=== PATIENT | male | born 1990 ===

== ENCOUNTER 2018-07-12 20:25 | Emergency (ER) | payer OTHER ==
[2018-07-12] MEDS ORDERED: DiphenhydrAMINE 50 mg/ml Inj IV STA (20:33)
[2018-07-12] MEDS ORDERED: Sodium Chloride 0.9% 1,000 ML IV STA (20:33)
[2018-07-12 21:04] LABS: BASO # 0.1 K/uL (0.0-0.2); EOS # 0.4 K/uL (0.0-0.7); EOS % 5.7 % (0.0-4.0); HEMOGLOBIN 15.7 g/dL (12.0-18.0); LYMPH # 2.9 K/uL (1.0-4.3); LYMPH % 39.7 % (20.0-40.0); MEAN CELL VOLUME 87.4 fl (80.0-94.0); MEAN CORPUSCULAR HEMOGLOBIN 30.5 pg (27.0-31.0); MEAN CORPUSCULAR HGB CONC 34.9 g/dL (33.0-37.0); MEAN PLATELET VOLUME 8.2 fl (7.2-11.7); MONO # 0.5 K/uL (0.0-0.8); MONO % 6.5 % (0.0-10.0); NEUT # 3.4 K/uL (1.8-7.0); NEUT % 47.1 % (50.0-75.0); NRBC % 0.1 % (0.0-0.0); RBC 5.15 Mil/uL (4.40-5.90); WHITE BLOOD COUNT 7.3 K/uL (4.8-10.8)
[2018-07-12] MEDS ORDERED: DiphenhydrAMINE 50 mg/ml Inj ONE (21:09)
[2018-07-12 21:19] LABS: ALB/GLOB RATIO 1.2 (1.0-2.1); ALBUMIN 4.5 g/dL (3.5-5.0); ALT/SGPT 31 U/L (21-72); AST/SGOT 53 U/L (17-59); BLOOD UREA NITROGEN 14 mg/dl (9-20); CALCIUM 9.3 mg/dL (8.4-10.2); GFR NON-AFRICAN AMERICAN 55
--- NOTE | 2018-07-12 21:39 | ED PDOC ---
HPI: Allergic Reaction Time Seen by Provider: 07/12/18 20:28 Chief Complaint (Nursing): Allergic Reaction Chief Complaint (Provider): allergic reaction History Per: Patient History/Exam Limitations: no limitations Onset/Duration Of Symptoms: Hrs (today) Current Symptoms Are (Timing): Still Present Additional Complaint(s): González Brady is a 28 year old male, with no significant past medical history, who presents to the emergency department for evaluation of an allergic reaction today. Patient states he suddenly felt swelling to his face and noticed to have red blotches on his face. Patient reports he ate pork and states he's had similar mild reactions to pork in the past. He admits to drinking significant amount of alcohol throughout the day and also reports x1 episode of nonbloody, nonbilious vomiting. Significant other at bedside also provided hist ory. He denies any other medical complaints. PMD: None provided. Past Medical History Reviewed: Historical Data, Nursing Documentation, Vital Signs Vital Signs: Last Vital Signs Temp 97.9 F 07/12/18 20:28 Pulse 101 H 07/12/18 21:05 Resp 20 07/12/18 21:05 BP 109/78 07/12/18 20:46 Pulse Ox 96 07/12/18 21:05 - Medical History PMH: Anxiety - Surgical History Surgical History: No Surg Hx - Family History Family History: States: Unknown Family Hx - Social History Current smoker - smoking cessation education provided: No Alcohol: Social Drugs: Denies - Home Medications Home Medications: Ambulatory Orders Medication Instructions Recorded Cetirizine HCl [Zyrtec] 10 mg PO QAM #10 capsule 07/12/18 Famotidine [Pepcid] 20 mg PO Q12 #14 tab 07/12/18 Methylprednisolone [Medrol Dosepak] 4 mg PO ASDIR #1 pkg 07/12/18 - Allergies Allergies/Adverse Reactions: Allergies Allergy/AdvReac Type Severity Reaction Status Date / Time PORK Allergy RASH Verified 07/12/18 20:28 Review of Systems ROS Statement: Except As Marked, All Systems Reviewed And Found Negative ENT: Positive for: Other (facial swelling with red blotches) Gastrointestinal: Positive for: Vomiting (x1 non bloody, non bilious) Physical Exam - Reviewed Nursing Documentation Reviewed: Yes Vital Signs Reviewed: Yes - Physical Exam Appears: Positive for: No Acute Distress Head Exam: Positive for: ATRAUMATIC, NORMAL INSPECTION, NORMOCEPHALIC Skin: Positive for: Normal Color, Warm, Dry Eye Exam: Positive for: Normal appearance, EOMI, PERRL, Periorbital swelling (mild edema) ENT: Positive for: Other (erythema to face) Neck: Positive for: Painless ROM Cardiovascular/Chest: Positive for: Regular Rate, Rhythm. Negative for: Murmur Respiratory: Positive for: Normal Breath Sounds. Negative for: Respiratory Distress Gastrointestinal/Abdominal: Positive for: Normal Exam, Soft. Negative for: Tenderness, Guarding, Rebound Back: Positive for: Normal Inspection. Negative for: L CVA Tenderness, R CVA Tenderness, Vertebral Tenderness Extremity: Positive for: Normal ROM (upper and lower extremities). Negative for: Deformity, Swelling Neurologic/Psych: Positive for: Alert, Oriented - Laboratory Results Result Diagrams: 07/12/18 20:55 07/12/18 20:55 - ECG O2 Sat by Pulse Oximetry: 96 (RA) Pulse Ox Interpretation: Normal Disposition - Clinical Impression Clinical Impression: Allergic reaction, Alcohol use - Disposition Disposition Time: 23:12 Condition: STABLE Additional Instructions: GONZÁLEZ BRADY, thank you for letting us take care of you today. Your pro vider was Reji Yost MD and you were treated for ALLERGIC REACTION. The emergency medical care you received today was directed at your acute symptoms. If you were prescribed any medication, please fill it and take as directed. It may take several days for your symptoms to resolve. Return to the Emergency Department if your symptoms worsen, do not improve, or if you have any other problems. Please contact your doctor or call one of the physicians/clinics you have been referred to that are listed on the Patient Visit Information form that is included in your discharge packet. Bring any paperwork you were given at discharge with you along with any medications you are taking to your follow up visit. Our treatment cannot replace ongoing medical care by a primary care provider outside of the emergency department. Thank you for allowing the [facility] team to be part of your care today. If you had an X-Ray or CT scan: A Radiologist will review the ED reading if any change in treatment is needed we will contact you. If you had a blood, urine, or wound culture: It will take several days for the results, if any change in treatment is needed we will contact you. If you had an STI test: It will take 48 hours for the results. Please call after 1 week if you have not heard back. Prescriptions: Cetirizine HCl [Zyrtec] 10 mg PO QAM #10 capsule Famotidine [Pepcid] 20 mg PO Q12 #14 tab Methylprednisolone [Medrol Dosepak] 4 mg PO ASDIR #1 pkg Instructions: Food Allergy Forms: [employer] ([place]ian) Medical Decision Making Medical Decision Making: Time: 20:28 Initial Impression: 28 y/o male with an allergic reaction Initial Plan: --Alcohol serum --CMP --Drug screen, urine --CBC w/ differential --Benadryl 50 mg IV --Sodium Chloride 1,000 ml IV 1,000 mls/hr --Pepcid 40 mg IV --Solu-medrol 125 mg IVP --Reevaluation Time: 23:12 Labs reviewed show no clinically significant abnormality. Patient reports resolution of all symptoms and is stable for discharge. Diagnosis is allergic reaction. Scribe Attestation: Documented by Isiah Randall, acting as a scribe for Reji Yost MD. Provider Scribe Attestation: All medical record entries made by the Scribe were at my direction and personally dictated by me. I have reviewed the chart and agree that the record accurately reflects my personal performance of the history, physical exam, medical decision making, and the department course for this patient. I have also personally directed, reviewed, and agree with the discharge instructions and disposition.
[2018-07-12 23:17] VITALS: O2SAT 96
[2018-07-12 23:37] VITALS: BP 106/53; PULSE 101; RESP 18; TEMP 98.4
== END 2018-07-12 23:33 | disposition home or self-care (01) ==
LOC: H.ER 20:25
DX: T78.40XA Allergy, unspecified, initial encounter (principal); F41.9 Anxiety disorder, unspecified
CPT/HCPCS: 80053; 80320; 85025; 96361; 96374; 96375; 99284; J1200; J2930; J7030